=== PATIENT | female | born 1930 | race African-American/Black ===

== ENCOUNTER 2017-11-17 20:06 | Inpatient (IN) | payer MEDICAID, MEDICARE, OTHER ==
[~2017-11-17] VITALS: Ht 157.5 cm; Wt 65.7 kg
[2017-11-17 21:02] LABS: Basophils # (auto) 0 uL; Basophils % (auto) 0.5 % (0.0-2.0); Eosinophils # (auto) 0 uL; Eosinophils % (auto) 0.3 % (0.0-7.0); Hemoglobin 11.3 g/dL (12.2-16.2); Lymphocytes # (auto) 0.9 uL; Lymphocytes % (auto) 13.6 % (10.0-50.0); Mean Corpuscular Hemoglobin 31.7 pg (28.0-32.0); Mean Corpuscular Hgb Conc. 34.4 g/dL (32.0-36.0); Mean Corpuscular Volume 92.3 fL (80.0-100.0); Monocytes # (auto) 0.7 uL; Monocytes % (auto) 9.7 % (0.0-12.0); Neutrophils # (auto) 5.1 uL; Neutrophils % (auto) 75.9 % (37.0-80.0); Nucleated Red Blood Cells % 0.1 %; Platelet Count (auto) 198 10^3/uL (140-450); Red Blood Cells 3.57 10^6/uL (4.0-5.20); Red Cell Distribution Width 14.9 % (11.8-14.3); White Blood Cell 6.7 10^3/uL (4.4-10.8)
[2017-11-17 21:17] LABS: INR 1.37 (0.9-1.15); Partial Thromboplastin Time 26.3 sec (23.78-33.04); Prothrombin Time 14.4 sec (9.27-12.13)
[2017-11-17 21:19] LABS: Albumin 3.2 g/dL (3.4-5.0); BUN/Creatinine Ratio 19.8; Calcium 8.5 mg/dL (8.5-10.1); Magnesium 1.6 mg/dL (1.6-2.6)
[2017-11-17 21:33] LABS: Potassium 2.9 mmol/L (3.5-5.1)
[2017-11-17 21:36] LABS: Total Protein 6.7 g/dL (6.4-8.2)
[2017-11-17] MEDS ORDERED: ONDANSETRON HCL 4 MG/2 ML VIAL IV ONE (22:00)
[2017-11-17] MEDS ORDERED: POTASSIUM CHL 20 Meq TABLET PO ONE (22:00)
[2017-11-17] MEDS ORDERED: SODIUM CHLORIDE 0.9% 1,000 ML IV ONE (22:00)
[2017-11-18] MEDS ORDERED: metroNIDAZOLE 500MG/100ML 100 ML IV ONE (04:00)
[2017-11-18] MEDS ORDERED: cefTRIAXone 1GM/10ml IVPUSH 10 ML IV ONE (04:00)
[2017-11-18] MEDS ORDERED: FUROSEMIDE 20 MG/2 ML VIAL IV ONE (04:00)
[2017-11-18] MEDS ORDERED: POTASSIUM CHL 20 Meq TABLET PO ONE (04:00)
[2017-11-18 04:50] LABS: Urine Bacteria NONE SEEN /hpf (None Seen); Urine Blood Negative /uL (Negative); Urine Hyaline Cast MOD /lpf (0 - 2); Urine Mucus FEW (None Seen); Urine Specific Gravity 1.012 (1.001-1.035); Urine WBC 1 /hpf (0 - 5)
[2017-11-18] MEDS ORDERED: MORPHINE SULFATE 8mg/ml INJ SDV IV PRN (06:45)
[2017-11-18] MEDS ORDERED: NITROGLYCERIN 0.4 MG SL TAB SL PRN (06:45)
[2017-11-18] MEDS ORDERED: SOD CHL 0.45% 1,000 ML IV ONE (07:00)
[2017-11-18 07:55] LABS: Basophils # (auto) 0 uL; Basophils % (auto) 0.5 % (0.0-2.0); Eosinophils # (auto) 0 uL; Eosinophils % (auto) 0.4 % (0.0-7.0); Hematocrit 34.1 % (36.0-46.0); Hemoglobin 11.4 g/dL (12.2-16.2); Lymphocytes # (auto) 1.1 uL; Lymphocytes % (auto) 15.2 % (10.0-50.0); Mean Corpuscular Hemoglobin 31.5 pg (28.0-32.0); Mean Corpuscular Hgb Conc. 33.4 g/dL (32.0-36.0); Mean Corpuscular Volume 94.2 fL (80.0-100.0); Monocytes # (auto) 0.9 uL; Monocytes % (auto) 11.6 % (0.0-12.0); Neutrophils # (auto) 5.4 uL; Neutrophils % (auto) 72.3 % (37.0-80.0); Nucleated Red Blood Cells % 0.2 %; Platelet Count (auto) 186 10^3/uL (140-450); Red Blood Cells 3.62 10^6/uL (4.0-5.20); White Blood Cell 7.5 10^3/uL (4.4-10.8)
[2017-11-18 08:47] LABS: Albumin 3.2 g/dL (3.4-5.0); BUN/Creatinine Ratio 20.9; Calcium 8.4 mg/dL (8.5-10.1); Potassium 3.2 mmol/L (3.5-5.1)
[2017-11-18 08:50] LABS: Bilirubin, Total 0.8 mg/dL (0.2-1.0); Total Protein 6.4 g/dL (6.4-8.2)
[2017-11-18] MEDS ORDERED: ADENOSINE 61 MG in GIVE UN-DILUTED 0 ML IV STA (09:28)
[2017-11-18] MEDS: FUROSEMIDE 20 MG/2 ML VIAL IV SCH ×2 (10:00→22:08)
[2017-11-18] MEDS ORDERED: ENOXAPARIN SOD 40 MG/0.4 ML SYRINGE SC SCH (10:00)
[2017-11-18] MEDS: CIPROFLOXACIN 400MG/200ML 200 ML IV SCH ×2 (11:36→23:00)
[2017-11-18] MEDS: ASPirin-EC 325mg tab PO SCH (11:36)
[2017-11-18 13:00] VITALS: BP 124/63
[2017-11-18 14:49] VITALS: BP 113/68
[2017-11-18] MEDS: metroNIDAZOLE 500MG/100ML 100 ML IV SCH ×2 (16:55→22:09)
[2017-11-18 17:00] VITALS: BP 144/48
[2017-11-18] MEDS ORDERED: ENOXAPARIN SOD 100 MG/1 ML SYRINGE SC SCH (22:00)
[2017-11-18] MEDS: ENOXAPARIN SOD 80 MG/0.8ML SYRINGE SC SCH (22:09)
[2017-11-18 22:49] VITALS: BP 149/80
[2017-11-19] MEDS ORDERED: ONDANSETRON HCL 4 MG/2 ML VIAL ONE (01:06)
[2017-11-19] MEDS ORDERED: MORPHINE SULF INJ 2 MG/ML SYRINGE 1ML ONE (01:06)
[2017-11-19] MEDS ORDERED: MORPHINE SULFATE 8mg/ml INJ SDV IV PRN (01:15)
[2017-11-19] MEDS ORDERED: ONDANSETRON HCL 4 MG/2 ML VIAL IV PRN (01:15)
[2017-11-19] MEDS: metroNIDAZOLE 500MG/100ML 100 ML IV SCH ×3 (05:18→22:00)
[2017-11-19 05:30] VITALS: BP 102/65
[2017-11-19 09:00] VITALS: BP 103/66
[2017-11-19] MEDS: CIPROFLOXACIN 400MG/200ML 200 ML IV SCH ×2 (10:09→23:00)
[2017-11-19] MEDS: ASPirin-EC 325mg tab PO SCH (10:10)
[2017-11-19] MEDS: FUROSEMIDE 20 MG/2 ML VIAL IV SCH ×2 (10:10→18:00)
[2017-11-19] MEDS: ENOXAPARIN SOD 80 MG/0.8ML SYRINGE SC SCH ×2 (10:10→22:00)
[2017-11-19] MEDS ORDERED: POTASSIUM CHL 20 Meq TABLET PO ONE (10:30)
[2017-11-19 13:00] VITALS: BP 98/49
[2017-11-19] MEDS ORDERED: OMEP20TA PO (13:37)
[2017-11-19] MEDS ORDERED: FURO40TA4 PO (13:37)
[2017-11-19] MEDS ORDERED: DIGO0.1262 PO (13:52)
[2017-11-19] MEDS ORDERED: LEFL20TA PO (13:52)
[2017-11-19] MEDS ORDERED: PRE1T PO (13:52)
[2017-11-19] MEDS ORDERED: POTA10TA34 PO (13:52)
[2017-11-19] MEDS ORDERED: RIV20T PO (13:52)
[2017-11-19] MEDS ORDERED: DIGECAP3 OR (13:52)
[2017-11-19] MEDS ORDERED: SERT-135 PO (13:52)
[2017-11-19] MEDS ORDERED: ASPI325T25 PO (14:48)
[2017-11-19] MEDS ORDERED: CAR3125T PO (14:48)
[2017-11-19] MEDS ORDERED: ATOR20TA50 PO (14:48)
[2017-11-19] MEDS ORDERED: MEPERIDINE HCL (25 MG/ML) 1ML VIAL IV ONE (16:45)
[2017-11-19 17:00] VITALS: BP 132/62
[2017-11-19] MEDS ORDERED: METO-158 PO (18:21)
[2017-11-19 22:00] VITALS: BP 100/52
[2017-11-19] MEDS ORDERED: ATORVASTATIN 20 MG TAB PO SCH (22:00)
[2017-11-19] MEDS ORDERED: CARVEDILOL 3.125 MG TAB PO SCH (22:00)
[2017-11-20 05:00] VITALS: BP 105/71
[2017-11-20 06:23] LABS: Basophils # (auto) 0 uL; Basophils % (auto) 0.6 % (0.0-2.0); Eosinophils # (auto) 0 uL; Eosinophils % (auto) 0.6 % (0.0-7.0); Hematocrit 33.2 % (36.0-46.0); Hemoglobin 11.4 g/dL (12.2-16.2); Lymphocytes # (auto) 0.9 uL; Lymphocytes % (auto) 13.2 % (10.0-50.0); Mean Corpuscular Hemoglobin 31.8 pg (28.0-32.0); Mean Corpuscular Hgb Conc. 34.4 g/dL (32.0-36.0); Mean Corpuscular Volume 92.4 fL (80.0-100.0); Monocytes # (auto) 0.9 uL; Neutrophils # (auto) 5.1 uL; Neutrophils % (auto) 72.6 % (37.0-80.0); Nucleated Red Blood Cells % 0.1 %; Platelet Count (auto) 187 10^3/uL (140-450); Red Blood Cells 3.59 10^6/uL (4.0-5.20); Red Cell Distribution Width 15.2 % (11.8-14.3)
[2017-11-20] MEDS: metroNIDAZOLE 500MG/100ML 100 ML IV SCH (06:35)
[2017-11-20] MEDS: FUROSEMIDE 20 MG/2 ML VIAL IV SCH (06:35)
[2017-11-20 06:39] LABS: BUN/Creatinine Ratio 12.4; Calcium 8.2 mg/dL (8.5-10.1)
[2017-11-20] MEDS ORDERED: LIDOCAINE 2%HCL (LOCAL ANESTH.) INJ 20ML MDV ONE (07:21)
[2017-11-20] MEDS ORDERED: IODIXANOL 320MG/ML 100ML BTL IV ONE (07:21)
== END 2017-11-20 09:59 | disposition home or self-care (01) | DRG 280 ==
LOC: ER 20:06 → EDBD 20:06 → TELE 20:07 → TELE-WESTW 11-18 12:42
PROVIDERS: ADMIT Internal Medicine; ATTEND Internal Medicine
DX: I21.4 Non-ST elevation (NSTEMI) myocardial infarction (principal); I50.23 Acute on chronic systolic (congestive) heart failure; I47.2 Ventricular tachycardia; E87.6 Hypokalemia; I11.0 Hypertensive heart disease with heart failure; I48.91 Unspecified atrial fibrillation; K57.30 Diverticulosis of large intestine without perforation or abscess without bleeding; E11.9 Type 2 diabetes mellitus without complications; I25.10 Atherosclerotic heart disease of native coronary artery without angina pectoris; R00.1 Bradycardia, unspecified; I95.9 Hypotension, unspecified; M19.90 Unspecified osteoarthritis, unspecified site; F41.9 Anxiety disorder, unspecified; K80.20 Calculus of gallbladder without cholecystitis without obstruction; D72.829 Elevated white blood cell count, unspecified; Z90.710 Acquired absence of both cervix and uterus
CPT/HCPCS: 36415; 71045; 74176; 76705; 78452; 80048; 80053; 81001; 83690; 83735; 83880; 84484; 85025; 85610; 85730; 87493; 93005; 93017; 93306; 96365; 96372; 96375; J0153; J2405; J3490; Q9967